=== PATIENT | male | born 1990 | race African-American/Black ===

== ENCOUNTER 2018-03-18 22:28 | Emergency (ER) | payer SELFPAY ==
[~2018-03-18] VITALS: Ht 177.8 cm; Wt 90.7 kg
[2018-03-18 22:31] VITALS: BP 109/70
[2018-03-18] MEDS ORDERED: Bacitracin Oint UD TOPIC ONE ×2 (22:45→22:46)
--- NOTE | 2018-03-18 22:53 | Emergency Room Report ---
History of Present Illness General Chief Complaint: Medical Clearance Source: Patient Present Illness HPI Is is a approximately 30-year-old male brought in by police as a [place]s. He refuse to give a name or cooperate. He is here for medical clearance for booking. He presents with chief complaint of abrasion and bleeding. He was at [employer] and was running away from security because of fried [employer]. He jumped a fence and fell down. He has bleeding on his pants so police brought him in for evaluation. Patient denies any other symptom. He has an abrasion to his left hand and abdomen. Other than that he refused to say anything else. Allergies: Coded Allergies: No Known Allergies (Unverified , 03/18/18) Patient History Past Medical History: see triage record, old chart reviewed Past Surgical History: unable to obtain Pertinent Family History: unable to obtain Immunizations: other Reviewed Nursing Documentation: PMH: Agreed; PSxH: Agreed Nursing Documentation-PMH Past Medical History: No Stated History Review of Systems Eye: Denies: eye pain, blurred vision ENT: Denies: ear pain, nose congestion, throat swelling Respiratory: Denies: cough, shortness of breath Cardiovascular: Denies: chest pain, palpitations Gastrointestinal: Denies: abdominal pain, diarrhea, nausea, vomiting Musculoskeletal: Denies: back pain, joint pain Skin: Denies: rash Neurological: Denies: headache, numbness Endocrine: Denies: increased thirst, increased urine Hematologic/Lymphatic: Denies: easy bruising All Other Systems: negative except mentioned in HPI Physical Exam Vital Signs Date Time Temp Pulse Resp B/P (MAP) Pulse Ox O2 Delivery O2 Flow Rate FiO2 03/18/18 22:31 208.8 16 109/70 97 Room Air 208.8 03/18/18 22:31 106 vitals normal. Temperature is 98.8 Sp02 EP Interpretation: reviewed, normal General Appearance: well appearing, no apparent distress, alert Head: normocephalic, atraumatic Eyes: bilateral eye PERRL, bilateral eye EOMI ENT: hearing grossly normal, normal pharynx Neck: full range of motion, supple, no meningismus Respiratory: chest non-tender, lungs clear, normal breath sounds Cardiovascular #1: regular rate, rhythm, no murmur Gastrointestinal: normal bowel sounds, non tender, no mass, no organomegaly, no bruit, non-distended Musculoskeletal: back normal, gait/station normal, normal range of motion Psychiatric: mood/affect normal Skin: warm/dry, abrasions - To palm of left hand and abdomen x 2. Medical Decision Making Diagnostic Impression: Primary Impression: Abrasion hand Additional Impression: Abrasion of abdominal wall Qualified Codes: S30.811A - Abrasion of abdominal wall, initial encounter ER Course Patient with abrasion. No deep infection. No laceration. We'll discharge home. Last Vital Signs Date Time Temp Pulse Resp B/P (MAP) Pulse Ox O2 Delivery O2 Flow Rate FiO2 03/18/18 22:31 98.2 106 16 109/70 97 Room Air 98.2 Status: improved Disposition: D/C TO LAW ENFORCEMENT IN [facility] Condition: Stable Additional Instructions: Follow-up with your doctor as needed. Return if worse. CHERRI ANDINO M.D. Mar 18, 2018 22:53
[2018-03-18 23:14] VITALS: BP 109/70
== END 2018-03-18 23:15 ==
LOC: EMR 23:03 → EDBD 23:03 → EMR 23:15
DX: S60.512A Abrasion of left hand, initial encounter (principal); S30.811A Abrasion of abdominal wall, initial encounter; W17.89XA Other fall from one level to another, initial encounter; Y92.89 Other specified places as the place of occurrence of the external cause
CPT/HCPCS: 99282